=== PATIENT | male | born 1950 | race Caucasian/White ===

== ENCOUNTER 2017-11-04 14:58 | Outpatient (CLI) | payer MEDICARE, BC | END 2017-11-04 14:59 | disposition home or self-care (01) | DRG 556 | LOC: CONVCARE 14:58 | PROVIDERS: ATTEND Orthopaedic Surgery | DX: M25.551 Pain in right hip (principal) | CPT/HCPCS: 73502 ==

== ENCOUNTER 2017-11-18 12:11 | Outpatient (CLI) | payer MEDICARE, BC | END 2017-11-18 12:12 | disposition home or self-care (01) | DRG 554 | LOC: CONVCARE 12:11 | PROVIDERS: ATTEND Orthopaedic Surgery | DX: M16.11 Unilateral primary osteoarthritis, right hip (principal) ==

== ENCOUNTER 2018-01-25 10:32 | Emergency (ER) | payer MEDICARE, BC ==
[2018-01-25 10:56] VITALS: PULSE 79; O2SAT 97
[2018-01-25 10:58] VITALS: BP 150/88; RESP 20; TEMP 97.5
== END 2018-01-25 11:21 | disposition home or self-care (01) | DRG 603 ==
LOC: ED 10:32
DX: L03.116 Cellulitis of left lower limb (principal); L30.9 Dermatitis, unspecified
CPT/HCPCS: 99282